=== PATIENT | female | born 1990 | race Caucasian/White ===

== ENCOUNTER 2023-09-16 17:11 | Outpatient (CLI) | payer OTHER, BC, SELFPAY ==
--- NOTE | ~2023-09-16 | US_ITS ---
EXAMINATION: US thyroid DATE: 09/16/2023 17:46 INDICATION: Thyroid nodule. TECHNIQUE: Multiple ultrasound images of the thyroid were obtained. COMPARISON: None. FINDINGS: The right thyroid lobe measures 5.1 x 1.3 x 1.6 cm. The left thyroid lobe measures 5.6 x 4.2 x 3.3 c m. In the left thyroid lobe, there is a 4.1 cm solid, hyperechoic, taller than wide nodule with smoo th margin without echogenic foci (TI-RADS TR4). IMPRESSION: 1. Left thyroid nodule. Ultrasound-guided fine-needle aspiration is recommended. Reviewed, dictated and finalized at location E. IMPRESSION: 1. Left thyroid nodule. Ultrasound-guided fine-needle aspiration is recommended .
== END 2023-09-16 17:12 | disposition home or self-care (01) ==
LOC: ANHIMG 17:12
PROVIDERS: PCP Nurse Practitioner Family; Visit Provider Nurse Practitioner Family
DX: E04.1 Nontoxic single thyroid nodule (principal)
CPT/HCPCS: 76536